=== PATIENT | female | born 1980 | race Caucasian/White ===

== ENCOUNTER 2016-07-04 07:57 | Emergency (ER) | payer OTHER, SELFPAY ==
--- NOTE | 2016-07-04 08:24 | EDDOCDS ---
Nurse's Notes [facility] Name: Yanely Benson Age: 36 yrs Sex: Female : 1980 Arrival Date: 07/04/2016 Time: 07:57 Bed Triage 1 Private MD: Siddhartha Perea Diagnosis: Cellulitis and abscess of mouth;Dental caries Presentation: 07/04 08:02 Presenting complaint: Patient states: Right sided dental pain with swelling, seen at [facility] urgent care yesterday, diagnosed with dental infection and put on PO Clindamycin, symptoms much worse this AM. Adult Sepsis Screening: The patient does not have new or worsening altered mentation. Patient's respiratory rate is less than 22. Systolic blood pressure is greater than 100. Patient has a qSOFA score of 0- Negative Sepsis Screen. Suicide/Homicide risk assessment- the patient denies having any suicidal and/or homicidal ideations and does not present with any other emotional, behavioral or mental health complaints. Status: Patient is not a emergency medical services coordinator or dependent. Transition of care: patient was not received from another setting of care. 08:02 Acuity: JOSE MANUEL Level 4 [facility] 08:02 Method Of Arrival: Walkin/Carried/Asstd [facility] Triage Assessment: 08:08 General: Appears in no apparent distress, uncomfortable. Pain: Pain currently is 10 out dwg of 10 on a pain scale. HIV screening NA for this visit Offered previously. 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 clindamycin HCl 150 mg Oral cap 1 cap every 6 hours (Last dose: 07/04/2016 05:00) 2. Tylenol 325 mg Oral tab 2 tabs every 4-6 hours as needed (Last dose: 07/04/2016 05:00) 3. fluoxetine 20 mg Oral cap 1 cap once daily (Last dose: 07/02/2016) - PMHx: Alcoholism; Depression; - PSHx: Hysterectomy; - Social history: Smoking status: Patient uses tobacco products, current every day smoker. No barriers to communication noted, The patient speaks fluent Tongan. - Family history: Not pertinent. - : The pt / caregiver states he / she is not on anticoagulants. Home medication list is obtained from the patient. - Exposure Risk Screening:: None identified. Screenin:19 Screening information is obtained from the patient. Fall risk: No risks identified. srm Assistance ADL's: requires no assistance with activities of daily living. Abuse/DV Screen: The patient / caregiver reports he/she is: not in a situation that causes fear, pain or injury. 08:22 Nutritional screening: No deficits noted. Advance Directives: There is no active DNR srm order. home support is adequate. Assessment: 08:19 General: Appears uncomfortable, Behavior is appropriate for age, cooperative. srm Neurological: No deficits noted. EENT: Reports right tooth pain and facial swelling. Respiratory: No deficits noted. Vital Signs: 08:08 BP 118 / 79; Pulse 80; Resp 20; Temp 97.9(T); Pulse Ox 97% on R/A; Weight 72.57 kg; g Height 5 ft. 3 in. (160.02 cm); Pain 10/10; 08:08 Body Mass Index 28.34 (72.57 kg, 160.02 cm) [facility] Vitals: 08:08 Log In Time: July 04, 2016 at 08:00. [facility] ED Course: 07:58 Patient visited by Cecy Owen Reg. lg 07:58 Siddhartha Perea is Private Physician. lg 07:58 Patient moved to Waiting lg 08:06 Triage Initiated dwg 08:07 [facility] Manley [facility]. btw 08:07 Diana Woodward MD is Attending Physician. btw 08:09 Patient moved to Triage 1 dwg 08:11 Patient visited by Rodolfo Manley PA. btw 08:13 Amauri Castro is Referral Physician. btw 08:21 [facility] Payment Agreement was scanned into [employer] and attached to record. jp5 08:22 The patient / caregiver is instructed regarding the plan of care and ED course. Patient srm has correct armband on for positive identification. 08:22 No IV's were initiated during this patient's visit. No procedures done that require srm assistance. Order Results: There are currently no results for this order. Outcome: 08:13 Discharge ordered by Provider. btw 08:22 Discharge Assessment: Patient awake, alert and oriented x 3. No cognitive and/or srm functional deficits noted. Patient verbalized understanding of disposition instructions. patient administered narcotics - no. The following High Risk Discharge criteria are identified: None. Discharged to home ambulatory. Condition: good Condition: stable. Discharge instructions given to patient, Instructed on discharge instructions, follow up and referral plans. medication usage, Demonstrated understanding of instructions, medications, Pt was receptive of discharge instructions/ teaching. Prescriptions given X 2. No special radiology studies were completed. Property :Personal belongings accompany Pt. 08:22 Patient left the ED. srm Signatures: Arslan Barbosa RN RN dwg Michelson, Staci, RN RN Cecy Cisse, Heri Reg Rodolfo Lyons PA PA btw Price, Jennalee jp5 MTDD
--- NOTE | 2016-07-04 08:24 | EDDOCDS ---
Physician Documentation [facility] Name: Yanely Benson Age: 36 yrs Sex: Female : 1980 Arrival Date: 07/04/2016 Time: 07:57 Bed Triage 1 Private MD: Siddhartha Perea Disposition: 07/04/16 08:13 Discharged to Home/Self Care. Impression: Cellulitis and abscess of mouth, Dental caries. - Condition is Stable. - Discharge Instructions: Dental Abscess, Dental Pain. - Prescriptions for Ultram 50 mg Oral Tablet - take 1 tablet by ORAL route every 6 hours As needed MDD: 4 tabs; 20 tablet. etodolac 200 mg Oral Capsule - take 1 capsule by ORAL route 3 times per day; 30 capsule. - Medication Reconciliation, Local Pharmacy Hours form. - Follow up: Your, Dentist; When: 1 - 2 days; Reason: Further diagnostic work-up, Recheck today's complaints, Continuance of care. - Problem is new. - Symptoms are unchanged. Historical: - Allergies: PENICILLINS; - Home Meds: 1. clindamycin HCl 150 mg Oral cap 1 cap every 6 hours (Last dose: 07/04/2016 05:00) 2. Tylenol 325 mg Oral tab 2 tabs every 4-6 hours as needed (Last dose: 07/04/2016 05:00) 3. fluoxetine 20 mg Oral cap 1 cap once daily (Last dose: 07/02/2016) - PMHx: Alcoholism; Depression; - PSHx: Hysterectomy; - Social history: Smoking status: Patient uses tobacco products, current every day smoker. No barriers to communication noted, The patient speaks fluent Turkmen. - Family history: Not pertinent. - : The pt / caregiver states he / she is not on anticoagulants. Home medication list is obtained from the patient. - Exposure Risk Screening:: None identified. 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 3 in. (160.02 cm); Pain 10/10; 08:08 Body Mass Index 28.34 (72.57 kg, 160.02 cm) dwg MDM: 08:21 [facility] Payment Agreement was scanned into [employer] and attached to record. jp5 08:21 Financial registration complete. jp5 Signatures: Arslan Barbosa RN RN dwg Michelson, Staci, RN RN srm Wolfenden, Brandon, PA PA btw Price, Jennalee jp5 The chart was reviewed and I authenticate all verbal orders and agree with the evaluation and treatment provided.Attachments: 08:21 [facility] Payment Agreement jp5 MTDD
--- NOTE | 2016-07-06 09:24 | EDDOCDS ---
Nurse's Notes [facility] Name: Yanely Benson Age: 36 yrs Sex: Female : 1980 Arrival Date: 07/04/2016 Time: 07:57 Bed Triage 1 Private MD: Siddhartha Perea Diagnosis: Cellulitis and abscess of mouth;Dental caries Presentation: 07/04 08:02 Presenting complaint: Patient states: Right sided dental pain with swelling, seen at [facility] urgent care yesterday, diagnosed with dental infection and put on PO Clindamycin, symptoms much worse this AM. Adult Sepsis Screening: The patient does not have new or worsening altered mentation. Patient's respiratory rate is less than 22. Systolic blood pressure is greater than 100. Patient has a qSOFA score of 0- Negative Sepsis Screen. Suicide/Homicide risk assessment- the patient denies having any suicidal and/or homicidal ideations and does not present with any other emotional, behavioral or mental health complaints. Status: Patient is not a litigation services manager or dependent. Transition of care: patient was not received from another setting of care. 08:02 Acuity: JOSE MANUEL Level 4 [facility] 08:02 Method Of Arrival: Walkin/Carried/Asstd [facility] Triage Assessment: 08:08 General: Appears in no apparent distress, uncomfortable. Pain: Pain currently is 10 out dwg of 10 on a pain scale. HIV screening NA for this visit Offered previously. 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 clindamycin HCl 150 mg Oral cap 1 cap every 6 hours (Last dose: 07/04/2016 05:00) 2. Tylenol 325 mg Oral tab 2 tabs every 4-6 hours as needed (Last dose: 07/04/2016 05:00) 3. fluoxetine 20 mg Oral cap 1 cap once daily (Last dose: 07/02/2016) - PMHx: Alcoholism; Depression; - PSHx: Hysterectomy; - Social history: Smoking status: Patient uses tobacco products, current every day smoker. No barriers to communication noted, The patient speaks fluent Surinamese. - Family history: Not pertinent. - : The pt / caregiver states he / she is not on anticoagulants. Home medication list is obtained from the patient. - Exposure Risk Screening:: None identified. Screenin:19 Screening information is obtained from the patient. Fall risk: No risks identified. srm Assistance ADL's: requires no assistance with activities of daily living. Abuse/DV Screen: The patient / caregiver reports he/she is: not in a situation that causes fear, pain or injury. 08:22 Nutritional screening: No deficits noted. Advance Directives: There is no active DNR srm order. home support is adequate. Assessment: 08:19 General: Appears uncomfortable, Behavior is appropriate for age, cooperative. srm Neurological: No deficits noted. EENT: Reports right tooth pain and facial swelling. Respiratory: No deficits noted. Vital Signs: 08:08 BP 118 / 79; Pulse 80; Resp 20; Temp 97.9(T); Pulse Ox 97% on R/A; Weight 72.57 kg; g Height 5 ft. 3 in. (160.02 cm); Pain 10/10; 08:08 Body Mass Index 28.34 (72.57 kg, 160.02 cm) [facility] Vitals: 08:08 Log In Time: July 04, 2016 at 08:00. [facility] ED Course: 07:58 Patient visited by Cecy Owen Reg. lg 07:58 Siddhartha Perea is Private Physician. lg 07:58 Patient moved to Waiting lg 08:06 Triage Initiated dwg 08:07 [facility]. btw 08:07 Diana Woodward MD is Attending Physician. btw 08:09 Patient moved to Triage 1 dwg 08:11 Patient visited by Rodolfo Manley PA. btw 08:13 [facility] is Referral Physician. btw 08:21 [facility] Payment Agreement was scanned into [employer] and attached to record. jp5 08:22 The patient / caregiver is instructed regarding the plan of care and ED course. Patient srm has correct armband on for positive identification. 08:22 No IV's were initiated during this patient's visit. No procedures done that require srm assistance. 14:30 T-Sheet-- Draft Copy was scanned into [employer] and attached to record. gb Order Results: There are currently no results for this order. Outcome: 08:13 Discharge ordered by Provider. btw 08:22 Discharge Assessment: Patient awake, alert and oriented x 3. No cognitive and/or srm functional deficits noted. Patient verbalized understanding of disposition instructions. patient administered narcotics - no. The following High Risk Discharge criteria are identified: None. Discharged to home ambulatory. Condition: good Condition: stable. Discharge instructions given to patient, Instructed on discharge instructions, follow up and referral plans. medication usage, Demonstrated understanding of instructions, medications, Pt was receptive of discharge instructions/ teaching. Prescriptions given X 2. No special radiology studies were completed. Property :Personal belongings accompany Pt. 08:22 Patient left the ED. srm Signatures: Arslan Barbosa, RN RN Sarah Emerson RN RN srm Sabina Wadsworth, Reg Reg gb Cecy Owen, Reg Reg lg Rodolfo Manley PA PA btw Price, Jennalee jp5 Chart Complete MTDBecky
--- NOTE | 2016-07-06 09:24 | EDDOCDS ---
Physician Documentation [facility] Name: Ynaely Benson Age: 36 yrs Sex: Female : 1980 Arrival Date: 07/04/2016 Time: 07:57 Bed Triage 1 Private MD: Siddhartha Perea Disposition: 07/04/16 08:13 Discharged to Home/Self Care. Impression: Cellulitis and abscess of mouth, Dental caries. - Condition is Stable. - Discharge Instructions: Dental Abscess, Dental Pain. - Prescriptions for Ultram 50 mg Oral Tablet - take 1 tablet by ORAL route every 6 hours As needed MDD: 4 tabs; 20 tablet. etodolac 200 mg Oral Capsule - take 1 capsule by ORAL route 3 times per day; 30 capsule. - Medication Reconciliation, Local Pharmacy Hours form. - Follow up: Your, Dentist; When: 1 - 2 days; Reason: Further diagnostic work-up, Recheck today's complaints, Continuance of care. - Problem is new. - Symptoms are unchanged. Historical: - Allergies: PENICILLINS; - Home Meds: 1. clindamycin HCl 150 mg Oral cap 1 cap every 6 hours (Last dose: 07/04/2016 05:00) 2. Tylenol 325 mg Oral tab 2 tabs every 4-6 hours as needed (Last dose: 07/04/2016 05:00) 3. fluoxetine 20 mg Oral cap 1 cap once daily (Last dose: 07/02/2016) - PMHx: Alcoholism; Depression; - PSHx: Hysterectomy; - Social history: Smoking status: Patient uses tobacco products, current every day smoker. No barriers to communication noted, The patient speaks fluent Nepali. - Family history: Not pertinent. - : The pt / caregiver states he / she is not on anticoagulants. Home medication list is obtained from the patient. - Exposure Risk Screening:: None identified. 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 3 in. (160.02 cm); Pain 10/10; 08:08 Body Mass Index 28.34 (72.57 kg, 160.02 cm) dwg MDM: : [facility] Payment Agreement was scanned into [employer] and attached to record. jp5 : Financial registration complete. jp5 14:30 T-Sheet-- Draft Copy was scanned into [employer] and attached to record. gb Signatures: Arslan Barbosa RN RN dwg Michelson, Staci, RN RN [facility] Sabina Wadsworth, Reg Reg gb Rodolfo Manley PA PA btw Shun Issa jp5 The chart was reviewed and I authenticate all verbal orders and agree with the evaluation and treatment provided.Attachments: : [facility] Payment Agreement jp5 14:30 T-Sheet-- Draft Copy gb Chart Complete MTDD
--- NOTE | 2016-07-06 09:24 | EDDOCDS ---
Physician Documentation [facility] Name: Yanely Benson Age: 36 yrs Sex: Female : 1980 Arrival Date: 07/04/2016 Time: 07:57 Bed Triage 1 Private MD: Siddhartha Perea Disposition: 07/04/16 08:13 Discharged to Home/Self Care. Impression: Cellulitis and abscess of mouth, Dental caries. - Condition is Stable. - Discharge Instructions: Dental Abscess, Dental Pain. - Prescriptions for Ultram 50 mg Oral Tablet - take 1 tablet by ORAL route every 6 hours As needed MDD: 4 tabs; 20 tablet. etodolac 200 mg Oral Capsule - take 1 capsule by ORAL route 3 times per day; 30 capsule. - Medication Reconciliation, Local Pharmacy Hours form. - Follow up: Your, Dentist; When: 1 - 2 days; Reason: Further diagnostic work-up, Recheck today's complaints, Continuance of care. - Problem is new. - Symptoms are unchanged. Historical: - Allergies: PENICILLINS; - Home Meds: 1. clindamycin HCl 150 mg Oral cap 1 cap every 6 hours (Last dose: 07/04/2016 05:00) 2. Tylenol 325 mg Oral tab 2 tabs every 4-6 hours as needed (Last dose: 07/04/2016 05:00) 3. fluoxetine 20 mg Oral cap 1 cap once daily (Last dose: 07/02/2016) - PMHx: Alcoholism; Depression; - PSHx: Hysterectomy; - Social history: Smoking status: Patient uses tobacco products, current every day smoker. No barriers to communication noted, The patient speaks fluent Bulgarian. - Family history: Not pertinent. - : The pt / caregiver states he / she is not on anticoagulants. Home medication list is obtained from the patient. - Exposure Risk Screening:: None identified. 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 3 in. (160.02 cm); Pain 10/10; 08:08 Body Mass Index 28.34 (72.57 kg, 160.02 cm) dwg MDM: : [facility] Payment Agreement was scanned into [employer] and attached to record. jp5 : Financial registration complete. jp5 14:30 T-Sheet-- Draft Copy was scanned into [employer] and attached to record. gb Signatures: Arslan Barbosa RN RN dwg Michelson, Staci, RN RN [facility] Sabina Wadsworth, Reg Reg gb Rodolfo Manley PA PA btw Shun Issa jp5 The chart was reviewed and I authenticate all verbal orders and agree with the evaluation and treatment provided.Attachments: : [facility] Payment Agreement jp5 14:30 T-Sheet-- Draft Copy gb Chart Complete MTDD
== END 2016-07-04 08:22 | disposition home or self-care (01) ==
LOC: M ED 07:57
DX: K04.7 Periapical abscess without sinus (principal); K02.9 Dental caries, unspecified; F32.9 Major depressive disorder, single episode, unspecified; F17.210 Nicotine dependence, cigarettes, uncomplicated; Z88.0 Allergy status to penicillin

== ENCOUNTER 2016-10-17 18:57 | Emergency (ER) | payer OTHER, MEDICAID ==
[~2016-10-17] VITALS: Ht 162.6 cm; Wt 68.0 kg
[2016-10-17] MEDS ORDERED: MULTIVITAMIN -ADULT INJECTION 10 ML, THIAMINE INJection 100 MG, FOLIC ACID 1 MG in NS 1... IV ONE (21:45)
[2016-10-17 22:11] LABS: BASO % 0.5 % (0.0-1.0); EOS # 0.1 K/mm3 (0.0-0.50); LARGE UNSTAINED CELL # 0.1 K/mm3 (0.0-0.4); LARGE UNSTAINED CELL % 1.4 % (0.0-4.0); LYMPH # 1.9 K/mm3 (1.5-4.5); LYMPH % 24.8 % (24.0-44.0); MEAN CORPUSCULAR HEMOGLOBIN 33.9 pg (27.0-33.0); MEAN CORPUSCULAR HGB CONC 35.9 g/dl (32.0-36.5); MEAN CORPUSCULAR VOLUME 94.5 fl (80.0-96.0); MONO # 0.3 K/mm3 (0.0-0.8); MONO % 4.2 % (0.0-5.0); NEUTROPHILS # 5.1 K/mm3 (1.8-7.7); NEUTROPHILS % 68.1 % (36.0-66.0); PLATELET COUNT, AUTOMATED 107 k/mm3 (150-450); RED CELL DISTRIBUTION WIDTH 12.4 % (11.5-14.5); WHITE BLOOD COUNT 7.5 K/mm3 (4.0-10.0)
[2016-10-17 22:36] LABS: ALBUMIN 3.8 GM/DL (3.2-5.2); ALBUMIN/GLOBULIN RATIO 1.03 (1.00-1.93); ALKALINE PHOSPHATASE 148 U/L (45-117); ALT/SGPT 72 U/L (12-78); AMYLASE 127 U/L (25-115); ANION GAP 14 MEQ/L (8-16); AST/SGOT 110 U/L (15-37); BILIRUBIN,DIRECT 0.8 MG/DL (0.0-0.2); BILIRUBIN,TOTAL 2.2 MG/DL (0.2-1.0); BLOOD UREA NITROGEN 12 MG/DL (7-18); CALCIUM LEVEL 8.7 MG/DL (8.5-10.1); CARBON DIOXIDE LEVEL 26 MEQ/L (21-32); CHLORIDE LEVEL 95 MEQ/L (98-107); CREATININE FOR GFR 0.84 MG/DL (0.55-1.02); GLOMERULAR FILTRATION RATE > 60.0 (>60); GLUCOSE, FASTING 88 MG/DL (70-105); POTASSIUM SERUM 3.2 MEQ/L (3.5-5.1); SODIUM LEVEL 135 MEQ/L (136-145); TOTAL PROTEIN 7.5 GM/DL (6.4-8.2)
[2016-10-17] MEDS ORDERED: BACTRIM 160MG/800MG DS TAB PO ONE (23:00)
[2016-10-17] MEDS ORDERED: ISOVUE-370 76% 100ML VIAL (Q9967) As Ordered ONE (23:06)
--- NOTE | 2016-10-17 23:30 | REPUSA ---
CT of the abdomen and pelvis with contrast Clinical statement: Pain. Pancreatitis. Technique: Multiple axial CT images were obtained from the base of the lungs through the floor of the pelvis utilizing 5 mm axial slices after administration of nonionic intravenous contrast. Coronal an d sagittal reconstructions were also obtained. Comparison: None. Findings: Chest: The visualized lung bases are clear, other than a 4 mm nodule in the posterior left lung base. Abdomen: The spleen, pancreas, kidneys, gallbladder, and adrenal glands are unremarkable. The liver i s enlarged, measuring 24.2 cm in maximal diameter. Diffuse low attenuation of the hepatic parenchyma is noted. No hepatic masses are seen. The aorta is within normal limits. There is no evidence of abdo sridhar lymphadenopathy or ascites. Pelvis: The bowel is unremarkable, with no obstructive or inflammatory changes. The appendix is jhonathan l. The urinary bladder is within normal limits. IUD is in place within the uterus. The other pelvic s tructures appear grossly intact. There is no evidence of pelvic lymphadenopathy or ascites. Bones: There are no suspicious osseous abnormalities seen. Impression: 1. No focal acute abnormality appreciated. The pancreas is unremarkable. 2. Hepatomegaly with diffuse fatty infiltration of the liver. 3. 4 mm nodule in the posterior left lung base, which is not considered clinically significant by Fle ischner society protocol recommendations.
[2016-10-18] MEDS ORDERED: BACT800T5 PO (00:05)
[2016-10-18 00:17] VITALS: BP 158/106
--- NOTE | 2016-10-18 14:08 | ED PDOC ---
Post-Departure Follow-Up dr bianca wan faxed formal report of ct abd/p for fu Mavis Barone MD October 18, 2016 14:08
== END 2016-10-18 00:25 | disposition home or self-care (01) ==
LOC: M ED 20:04
DX: K85.90 Acute pancreatitis without necrosis or infection, unspecified (principal); N39.0 Urinary tract infection, site not specified; R91.1 Solitary pulmonary nodule; K76.0 Fatty (change of) liver, not elsewhere classified; R16.0 Hepatomegaly, not elsewhere classified; F32.9 Major depressive disorder, single episode, unspecified; F17.200 Nicotine dependence, unspecified, uncomplicated; F10.21 Alcohol dependence, in remission; Z90.79 Acquired absence of other genital organ(s); Z88.0 Allergy status to penicillin
CPT/HCPCS: 36415; 74177; 80048; 80076; 81001; 82150; 83690; 85025; 87088; 87186; 96365; 96366; 99282; G0480; J3411; Q9967

== ENCOUNTER 2016-12-11 16:16 | Emergency (ER) | payer OTHER, MEDICAID ==
[~2016-12-11] VITALS: Ht 162.6 cm; Wt 83.1 kg
[~2016-12-11 16:16] MED LIST: BACT800T5 PO
[2016-12-11 16:19] VITALS: BP 141/98
[2016-12-11] MEDS ORDERED: FLUO20CA8 PO (16:34)
[2016-12-11] MEDS ORDERED: NORCOTAB PO (16:52)
[2016-12-11] MEDS ORDERED: CLEO300C2 PO (16:52)
== END 2016-12-11 17:07 | disposition home or self-care (01) ==
LOC: M ED 16:16
DX: K08.89 Other specified disorders of teeth and supporting structures (principal); K05.10 Chronic gingivitis, plaque induced; F10.10 Alcohol abuse, uncomplicated; Z79.899 Other long term (current) drug therapy; Z88.0 Allergy status to penicillin

== ENCOUNTER 2017-01-09 02:24 | Emergency (ER) | payer MEDICAID, OTHER ==
[~2017-01-09 02:24] MED LIST changes: +CLEO300C2 PO; +FLUO20CA8 PO; +NORCOTAB PO
[2017-01-09 02:44] VITALS: BP 126/65
[2017-01-09] MEDS ORDERED: diphenhydrAMINE INJ 50MG/ML VIAL (J1200) IV STA (04:02)
[2017-01-09] MEDS ORDERED: HALOPERIDOL 5 MG/ML VIAL (J1630) IV STA (04:02)
[2017-01-09] MEDS ORDERED: NS 1,000 ML IV ONE (04:15)
[2017-01-09 04:21] LABS: ALBUMIN 4.4 GM/DL (3.2-5.2); ALBUMIN/GLOBULIN RATIO 1.47 (1.00-1.93); ALKALINE PHOSPHATASE 119 U/L (45-117); ALT/SGPT 32 U/L (12-78); AMYLASE 78 U/L (25-115); ANION GAP 14 MEQ/L (8-16); AST/SGOT 36 U/L (15-37); BILIRUBIN,DIRECT 0.3 MG/DL (0.0-0.2); BILIRUBIN,TOTAL 0.8 MG/DL (0.2-1.0); BLOOD UREA NITROGEN 14 MG/DL (7-18); CALCIUM LEVEL 9.4 MG/DL (8.5-10.1); CARBON DIOXIDE LEVEL 22 MEQ/L (21-32); CHLORIDE LEVEL 103 MEQ/L (98-107); CREATININE FOR GFR 0.94 MG/DL (0.55-1.02); GLOMERULAR FILTRATION RATE > 60.0 (>60); GLUCOSE, FASTING 74 MG/DL (70-105); POTASSIUM SERUM 3.1 MEQ/L (3.5-5.1); SODIUM LEVEL 139 MEQ/L (136-145); TOTAL PROTEIN 7.4 GM/DL (6.4-8.2)
[2017-01-09 04:27] LABS: BASO % 0.3 % (0.0-1.0); EOS # 0.1 K/mm3 (0.0-0.50); EOS % 0.8 % (0.0-3.0); LARGE UNSTAINED CELL # 0.2 K/mm3 (0.0-0.4); LARGE UNSTAINED CELL % 1.2 % (0.0-4.0); LYMPH # 3.5 K/mm3 (1.5-4.5); LYMPH % 23.3 % (24.0-44.0); MEAN CORPUSCULAR HEMOGLOBIN 33.9 pg (27.0-33.0); MEAN CORPUSCULAR HGB CONC 34.8 g/dl (32.0-36.5); MEAN CORPUSCULAR VOLUME 97.2 fl (80.0-96.0); MONO # 0.5 K/mm3 (0.0-0.8); MONO % 3.4 % (0.0-5.0); NEUTROPHILS # 10.1 K/mm3 (1.8-7.7); PLATELET COUNT, AUTOMATED 203 k/mm3 (150-450); RED CELL DISTRIBUTION WIDTH 12.2 % (11.5-14.5); WHITE BLOOD COUNT 14.2 K/mm3 (4.0-10.0)
== END 2017-01-09 05:17 | disposition left against medical advice (07) ==
LOC: M ED 02:24
DX: R11.10 Vomiting, unspecified (principal); F32.9 Major depressive disorder, single episode, unspecified; F17.200 Nicotine dependence, unspecified, uncomplicated; F10.21 Alcohol dependence, in remission; Z90.79 Acquired absence of other genital organ(s)
CPT/HCPCS: 80048; 80076; 82150; 83690; 85025; 96374; 96375; 99281; J1200; J1630

== ENCOUNTER → 2017-04-03 | Outpatient (CLI) | payer MEDICAID | LOC: M OUTALCOH 08:20 | PROVIDERS: ATTEND Psychiatry & Neurology Psychiatry | DX: F12.20 Cannabis dependence, uncomplicated (principal); F10.20 Alcohol dependence, uncomplicated ==

== ENCOUNTER 2017-05-09 11:05 | Outpatient (RCR) | payer MEDICAID | END 2017-06-08 | LOC: M OUTALCOH 05-15 14:00 | DX: F10.20 Alcohol dependence, uncomplicated (principal); F12.20 Cannabis dependence, uncomplicated ==

== ENCOUNTER 2017-12-07 18:04 | Emergency (ER) | payer OTHER, MEDICAID ==
[2017-12-07] MEDS: KETOROLAC TROMETHAMINE 10 MG TAB PO (20:05)
[2017-12-07] MEDS: BACLOFEN 10 MG TAB PO (20:05)
== END 2017-12-07 20:57 | disposition home or self-care (01) ==
LOC: M ED 18:04
DX: M54.42 Lumbago with sciatica, left side (principal); F10.10 Alcohol abuse, uncomplicated; F41.9 Anxiety disorder, unspecified; R56.9 Unspecified convulsions; Z88.0 Allergy status to penicillin; Z79.899 Other long term (current) drug therapy
CPT/HCPCS: 73564

== ENCOUNTER 2018-03-31 07:28 | Emergency (ER) | payer OTHER ==
[2018-03-31] MEDS: NS 1,000 ML IV (07:45)
[2018-03-31] MEDS: ONDANSETRON 4MG/2ML VIAL (J2405) IV (08:04)
[2018-03-31 08:13] LABS: BASO % 0.6 % (0.0-1.0); EOS # 0.1 10^3/uL (0.0-0.50); EOS % 0.7 % (0.0-3.0); HEMATOCRIT 46.4 % (36.0-47.0); HEMOGLOBIN 16.2 g/dl (12.0-15.5); IMMATURE GRANULOCYTE % 0.3 % (0-3.0); LYMPH # 2.2 10^3/uL (1.5-4.5); LYMPH % 30.8 % (24.0-44.0); MEAN CORPUSCULAR HEMOGLOBIN 31.6 pg (27.0-33.0); MEAN CORPUSCULAR HGB CONC 34.9 g/dl (32.0-36.5); MEAN CORPUSCULAR VOLUME 90.6 fl (80.0-96.0); MONO # 0.4 10^3/uL (0.0-0.8); MONO % 6.1 % (0.0-5.0); NEUTROPHILS # 4.4 10^3/uL (1.8-7.7); NEUTROPHILS % 61.5 % (36.0-66.0); PLATELET COUNT, AUTOMATED 267 10^3/uL (150-450); RED BLOOD COUNT 5.12 10^6/uL (4.00-5.40); RED CELL DISTRIBUTION WIDTH 11.9 % (11.5-14.5); WHITE BLOOD COUNT 7.2 10^3/uL (4.0-10.0)
[2018-03-31 08:50] LABS: HCG, SERUM QUANTITATIVE < 1.0 MIU/ML
[2018-03-31 08:54] LABS: ALBUMIN 3.6 GM/DL (3.2-5.2); ALKALINE PHOSPHATASE 120 U/L (45-117); ALT/SGPT 157 U/L (12-78); ANION GAP 10 MEQ/L (8-16); AST/SGOT 114 U/L (7-37); BILIRUBIN,TOTAL 0.4 MG/DL (0.2-1.0); BLOOD UREA NITROGEN 15 MG/DL (7-18); CALCIUM LEVEL 8.5 MG/DL (8.5-10.1); CARBON DIOXIDE LEVEL 23 MEQ/L (21-32); CHLORIDE LEVEL 109 MEQ/L (98-107); CK-MB VALUE MASS < 1.0 NG/ML (<3.6); CPK CREATINE PHOSPHOKINASE 141 U/L (26-192); CREATININE FOR GFR 0.84 MG/DL (0.55-1.30); ETHYL ALCOHOL (ETHANOL) 0.102 % (0.000-0.010); GLOMERULAR FILTRATION RATE > 60.0 (>60); GLUCOSE, FASTING 98 MG/DL (70-100); MB/CK RELATIVE INDEX 0.71 (< OR =4); SODIUM LEVEL 142 MEQ/L (136-145); TOTAL PROTEIN 7.2 GM/DL (6.4-8.2); TROPONIN I < 0.02 NG/ML (< 0.10)
[2018-03-31 09:31] LABS: AMYLASE 55 U/L (25-115)
[2018-03-31 09:31] LABS: LIPASE 85 U/L (73-393)
[2018-03-31 09:40] LABS: APPEARANCE, URINE HAZY (CLEAR); BACTERIA, URINE AUTO NEGATIVE (NEGATIVE); BILIRUBIN, URINE AUTO NEGATIVE (NEGATIVE); BLOOD, URINE BLOOD 2+ (NEGATIVE); COLOR, URINE YELLOW (YELLOW); GLUCOSE, URINE (UA) AUTO NEGATIVE (NEGATIVE); KETONE, URINE AUTO NEGATIVE (NEGATIVE); LEUKOCYTE ESTERASE, URINE AUTO NEGATIVE (NEGATIVE); MUCUS, URINE SMALL (NEGATIVE); NITRITE, URINE AUTO NEGATIVE (NEGATIVE); PROTEIN, URINE AUTO NEGATIVE (NEGATIVE); RBC, URINE AUTO 0 /HPF (0-3); SPECIFIC GRAVITY URINE AUTO 1.015 (1.002-1.035); SQUAMOUS EPITHELIAL CELL UR AU 9 /HPF (0-6); UROBILINOGEN, URINE AUTO 0.2 mg/dL (0.0-2.0); WBC, URINE AUTO 0 /HPF (0-3)
[2018-03-31 09:52] LABS: AMPHETAMINES LEVEL URINE NEGATIVE (NEGATIVE); BARBITURATES URINE NEGATIVE (NEGATIVE); BENZODIAZEPINES URINE NEGATIVE (NEGATIVE); CANNABINOIDS URINE NEGATIVE (NEGATIVE); COCAINE METABOLITE URINE NEGATIVE (NEGATIVE); METHADONE URINE NEGATIVE (NEGATIVE); OPIATES URINE NEGATIVE (NEGATIVE); PHENCYCLIDINE URINE NEGATIVE (NEGATIVE)
== END 2018-03-31 10:11 | disposition home or self-care (01) ==
LOC: M ED 07:28
DX: R10.13 Epigastric pain (principal); R11.2 Nausea with vomiting, unspecified; R94.5 Abnormal results of liver function studies; K76.0 Fatty (change of) liver, not elsewhere classified; F33.9 Major depressive disorder, recurrent, unspecified; F41.9 Anxiety disorder, unspecified; G40.89 Other seizures; F10.188 Alcohol abuse with other alcohol-induced disorder; Y90.0 Blood alcohol level of less than 20 mg/100 ml; Z88.0 Allergy status to penicillin
CPT/HCPCS: J2405

== ENCOUNTER 2018-09-11 22:17 | Emergency (ER) | payer OTHER ==
[~2018-09-11] VITALS: Ht 172.7 cm; Wt 94.5 kg
[~2018-09-11 22:17] MED LIST changes: +BACL10TA2 PO; +DICL75TA PO; +HYDR-3715 PO; -NORCOTAB PO; +WELLTAB38 PO; +ZOFR4TAB14 PO
[2018-09-11] MEDS ORDERED: ONDANSETRON 4MG/2ML VIAL (J2405) IV ONE (22:30)
[2018-09-11] MEDS ORDERED: NS 1,000 ML IV ONE (22:30)
[2018-09-11] MEDS ORDERED: LIDOCAINE 2% 5ML JELLY UROJET TOP ONE (22:30)
[2018-09-11 22:40] LABS: BASO # 0.1 10^3/uL (0.0-0.2); BASO % 0.5 % (0.0-1.0); EOS # 0.2 10^3/uL (0.0-0.50); EOS % 1.6 % (0.0-3.0); HEMATOCRIT 45.7 % (36.0-47.0); HEMOGLOBIN 15.5 g/dl (12.0-15.5); LYMPH # 4.3 10^3/uL (1.5-4.5); LYMPH % 42.6 % (24.0-44.0); MEAN CORPUSCULAR HGB CONC 33.9 g/dl (32.0-36.5); MEAN CORPUSCULAR VOLUME 94.4 fl (80.0-96.0); MONO # 0.6 10^3/uL (0.0-0.8); MONO % 5.6 % (0.0-5.0); NEUTROPHILS % 49.4 % (36.0-66.0); PLATELET COUNT, AUTOMATED 216 10^3/uL (150-450); RED BLOOD COUNT 4.84 10^6/uL (4.00-5.40); WHITE BLOOD COUNT 10.1 10^3/uL (4.0-10.0)
--- NOTE | 2018-09-11 22:57 | REP ---
Clinical: Overdose . Comparison: None . Findings: The ventricles, sulci, and cisterns are normal in position and appearance. Beth-white differentiation is maintained. No acute intracranial hemorrhage, mass/mass effect, pathology or trauma/injury. No evidence for acute infarction. No extra-axial fluid collection. Calvarium is intact. Paranasal sinuses and mastoid air cells are clear. Impression: Normal noncontrast head CT. No evidence for acute intracranial pathology or trauma/injury. Electronically Signed by Thony Bedoya MD 09/11/2018 10:48 P
--- NOTE | 2018-09-11 22:57 | REP ---
Clinical: Drug overdose . Technique: Axial noncontrast images from the skull base to the thoracic inlet with coronal and sagittal re-formations Findings: Mild reversal of normal lordosis may be secondary to positioning versus pain/spasm. Normal alignment is maintained. Cervical vertebral bodies including transverse processes and spinous processes are intact and there is no evidence for acute fracture / compression injury or subluxation. Spinal canal is patent. Posterior elements are intact. Paravertebral soft tissues are normal. Impression: Normal noncontrast cervical spine CT. No evidence for acute pathology or trauma/injury. Electronically Signed by Thony Bedoya MD 09/11/2018 10:48 P
[2018-09-11 23:14] LABS: ACETAMINOPHEN LEVEL < 2.0 UG/ML (10.0-30.0); ALBUMIN 3.8 GM/DL (3.2-5.2); ALT/SGPT 23 U/L (12-78); BILIRUBIN,DIRECT < 0.1 MG/DL (0.0-0.2); BILIRUBIN,TOTAL 0.2 MG/DL (0.2-1.0); BLOOD UREA NITROGEN 11 MG/DL (7-18); CALCIUM LEVEL 7.9 MG/DL (8.5-10.1); CARBON DIOXIDE LEVEL 23 MEQ/L (21-32); CHLORIDE LEVEL 109 MEQ/L (98-107); CPK CREATINE PHOSPHOKINASE 251 U/L (26-192); CREATININE FOR GFR 0.81 MG/DL (0.55-1.30); ETHYL ALCOHOL (ETHANOL) 0.363 % (0.000-0.010); GLOMERULAR FILTRATION RATE > 60.0 (>60); GLUCOSE, FASTING 111 MG/DL (70-100); POTASSIUM SERUM 3.8 MEQ/L (3.5-5.1); SALICYLATE LEVEL 3.5 MG/DL (5.0-30.0); SODIUM LEVEL 143 MEQ/L (136-145); TOTAL PROTEIN 6.9 GM/DL (6.4-8.2)
[2018-09-11 23:40] LABS: AMPHETAMINES LEVEL URINE NEGATIVE (NEGATIVE); BARBITURATES URINE NEGATIVE (NEGATIVE); BENZODIAZEPINES URINE NEGATIVE (NEGATIVE); CANNABINOIDS URINE NEGATIVE (NEGATIVE); COCAINE METABOLITE URINE NEGATIVE (NEGATIVE); METHADONE URINE NEGATIVE (NEGATIVE); OPIATES URINE NEGATIVE (NEGATIVE); PHENCYCLIDINE URINE NEGATIVE (NEGATIVE)
[2018-09-12 05:27] VITALS: BP 120/70
--- NOTE | 2018-09-12 07:39 | ECGEPIP ---
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
--- NOTE | 2018-09-12 08:37 | REP ---
Clinical: Drug overdose. Comparison: None . Findings: The mediastinum and cardiac silhouette are stable and within normal limits for portable technique. The lung ulrich are clear without acute consolidation, effusion, or pneumothorax. Skeletal structures are intact. Impression: No acute cardiopulmonary process appreciated. Electronically Signed by Thony Bedoya MD 09/12/2018 08:28 A
== END 2018-09-12 06:06 | disposition home or self-care (01) ==
LOC: EDBD 22:17 → M ED 22:17
DX: F10.129 Alcohol abuse with intoxication, unspecified (principal); I45.89 Other specified conduction disorders; I49.9 Cardiac arrhythmia, unspecified; Z88.0 Allergy status to penicillin
CPT/HCPCS: 51702; 70450; 71045; 72125; 80048; 80076; 80307; 81001; 82550; 84443; 85025; 93005; 93041; 94760; 96360; 96375; 99285; G0480; J2405

== ENCOUNTER → 2019-01-19 | Outpatient (REF) | payer OTHER ==
[2019-01-19 18:03] LABS: BASO # 0.1 10^3/uL (0.0-0.2); BASO % 0.5 % (0.0-1.0); EOS # 0.1 10^3/uL (0.0-0.50); EOS % 1.5 % (0.0-3.0); HEMATOCRIT 44.4 % (36.0-47.0); HEMOGLOBIN 15.3 g/dl (12.0-15.5); LYMPH # 2.6 10^3/uL (1.5-4.5); LYMPH % 27.3 % (24.0-44.0); MEAN CORPUSCULAR HEMOGLOBIN 32.6 pg (27.0-33.0); MEAN CORPUSCULAR HGB CONC 34.5 g/dl (32.0-36.5); MEAN CORPUSCULAR VOLUME 94.5 fl (80.0-96.0); MONO # 0.6 10^3/uL (0.0-0.8); MONO % 6.4 % (0.0-5.0); WHITE BLOOD COUNT 9.4 10^3/uL (4.0-10.0)
[2019-01-19 18:11] LABS: ALBUMIN 3.9 GM/DL (3.2-5.2); ALT/SGPT 25 U/L (12-78); BILIRUBIN,TOTAL 0.3 MG/DL (0.2-1.0); BLOOD UREA NITROGEN 11 MG/DL (7-18); CALCIUM LEVEL 9.1 MG/DL (8.5-10.1); CARBON DIOXIDE LEVEL 25 MEQ/L (21-32); CHLORIDE LEVEL 107 MEQ/L (98-107); CHOLESTEROL LEVEL 160 MG/DL (<200); CHOLESTEROL RISK RATIO 5.333 (<5); CREATININE FOR GFR 0.88 MG/DL (0.55-1.30); FREE T4 1.03 NG/DL (0.76-1.46); GLOMERULAR FILTRATION RATE > 60.0 (>60); GLUCOSE, FASTING 72 MG/DL (70-100); HDL CHOLESTEROL 30 MG/DL (>40); LDL CHOLESTEROL 84 MG/DL (<100); NON-HDL-C 130 MG/DL; POTASSIUM SERUM 4.1 MEQ/L (3.5-5.1); SODIUM LEVEL 140 MEQ/L (136-145); TOTAL PROTEIN 7.1 GM/DL (6.4-8.2); TRIGLYCERIDES LEVEL 231 MG/DL (<150)
[2019-01-19 18:14] LABS: TOTAL 25(OH) VITAMIN D 24.2 NG/ML (30.0-100.0)
[2019-01-19 18:40] LABS: HEMOGLOBIN A1c 5.7 %
== END ==
LOC: M LAB REF 17:10
PROVIDERS: ATTEND Nurse Practitioner Family
DX: Z00.01 Encounter for general adult medical examination with abnormal findings (principal); R74.8 Abnormal levels of other serum enzymes

== ENCOUNTER → 2022-07-04 | Outpatient (REF) | payer OTHER ==
[~2022-07-04] MED LIST changes: +FLUO-96 PO; -FLUO20CA8 PO
[2022-07-04 12:52] LABS: BASO % 0.5 % (0.0-1.0); EOS # 0.1 10^3/uL (0.0-0.5); EOS % 1.6 % (0.0-3.0); HEMATOCRIT 44.6 % (36.0-47.0); HEMOGLOBIN 15.4 g/dl (12.0-15.5); LYMPH # 2.8 10^3/uL (1.5-5.0); LYMPH % 34.3 % (24.0-44.0); MEAN CORPUSCULAR HEMOGLOBIN 32.2 pg (27.0-33.0); MEAN CORPUSCULAR HGB CONC 34.5 g/dl (32.0-36.5); MEAN CORPUSCULAR VOLUME 93.1 fl (80.0-96.0); MONO # 0.5 10^3/uL (0.0-0.8); MONO % 6.3 % (2.0-8.0); NEUTROPHILS # 4.7 10^3/uL (1.5-8.5); NEUTROPHILS % 56.9 % (36.0-66.0); PLATELET COUNT, AUTOMATED 187 10^3/uL (150-450); RED BLOOD COUNT 4.79 10^6/uL (4.00-5.40); WHITE BLOOD COUNT 8.2 10^3/uL (4.0-10.0)
[2022-07-04 13:26] LABS: PERCENT SATURATION 29.6 % (13.2-45.0)
[2022-07-04 13:27] LABS: FERRITIN 46.4 NG/ML (7.3-270.7)
== END ==
LOC: M LAB REF 12:27
PROVIDERS: ATTEND Nurse Practitioner Family
DX: N94.6 Dysmenorrhea, unspecified (principal)

== ENCOUNTER → 2022-08-22 | Outpatient (REF) | payer OTHER ==
[2022-08-22 20:02] LABS: ALBUMIN 3.8 G/DL (3.2-5.2); ALKALINE PHOSPHATASE 91 U/L (46-116); ALT/SGPT 21 U/L (7.0-40); AST/SGOT 20 U/L (<34); BILIRUBIN,TOTAL 0.3 MG/DL (0.3-1.2); BLOOD UREA NITROGEN 11 MG/DL (9-23); CALCIUM LEVEL 9.1 MG/DL (8.5-10.1); CARBON DIOXIDE LEVEL 28 MMOL/L (20-31); CHLORIDE LEVEL 105 MMOL/L (98-107); CHOLESTEROL LEVEL 145 MG/DL (<200); CHOLESTEROL RISK RATIO 3.54 (<5); CREATININE FOR GFR 0.85 MG/DL (0.55-1.30); GLOMERULAR FILTRATION RATE > 60.0 (>58); GLUCOSE, FASTING 71 MG/DL (60-100); HDL CHOLESTEROL 40.9 MG/DL (>40); LDL CHOLESTEROL 77.7 MG/DL (<100); NON-HDL-C 104.1 MG/DL; POTASSIUM SERUM 4.4 MMOL/L (3.5-5.1); SODIUM LEVEL 137 MMOL/L (136-145); THYROID STIMULATING HORMONE 0.996 uIU/ML (0.55-4.78); TOTAL 25(OH) VITAMIN D 27.6 NG/ML (20.0-100.0); TOTAL PROTEIN 6.4 G/DL (5.7-8.2); TRIGLYCERIDES LEVEL 132 MG/DL (<150)
[2022-08-22 20:29] LABS: HIV 1&2 SCREEN CENTAUR NEGATIVE (NEGATIVE)
== END ==
LOC: M LAB REF 16:12
PROVIDERS: ATTEND Nurse Practitioner Family
DX: E78.1 Pure hyperglyceridemia (principal); Z11.9 Encounter for screening for infectious and parasitic diseases, unspecified; E55.9 Vitamin D deficiency, unspecified

== ENCOUNTER → 2023-08-26 | Outpatient (REF) | payer OTHER ==
[2023-08-26 12:35] LABS: BASO # 0.1 10^3/uL (0.0-0.2); BASO % 0.7 % (0.0-1.0); EOS # 0.1 10^3/uL (0.0-0.5); EOS % 1.3 % (0.0-3.0); HEMATOCRIT 47.2 % (36.0-47.0); HEMOGLOBIN 16.2 g/dl (12.0-15.5); LYMPH # 2.3 10^3/uL (1.5-5.0); LYMPH % 27.3 % (24.0-44.0); MEAN CORPUSCULAR HEMOGLOBIN 31.3 pg (27.0-33.0); MEAN CORPUSCULAR HGB CONC 34.3 g/dl (32.0-36.5); MEAN CORPUSCULAR VOLUME 91.3 fl (80.0-96.0); MONO # 0.5 10^3/uL (0.0-0.8); NEUTROPHILS # 5.5 10^3/uL (1.5-8.5); NEUTROPHILS % 64.3 % (36.0-66.0); PLATELET COUNT, AUTOMATED 213 10^3/uL (150-450); RED BLOOD COUNT 5.17 10^6/uL (4.00-5.40); WHITE BLOOD COUNT 8.5 10^3/uL (4.0-10.0)
[2023-08-26 12:52] LABS: HEMOGLOBIN A1c 5.2 % (4.0-6.0)
[2023-08-26 12:59] LABS: ALBUMIN 3.9 G/DL (3.2-5.2); ALKALINE PHOSPHATASE 93 U/L (46-116); ALT/SGPT < 9 U/L (7.0-40); AST/SGOT 19 U/L (<34); BILIRUBIN,TOTAL 0.5 MG/DL (0.3-1.2); BLOOD UREA NITROGEN 15 MG/DL (9-23); CALCIUM LEVEL 9.1 MG/DL (8.5-10.1); CARBON DIOXIDE LEVEL 31 MMOL/L (20-31); CHLORIDE LEVEL 106 MMOL/L (98-107); CHOLESTEROL LEVEL 154 MG/DL (<200); CHOLESTEROL RISK RATIO 4.12 (<5); CREATININE FOR GFR 0.88 MG/DL (0.55-1.30); GLOMERULAR FILTRATION RATE > 60.0 (>58); GLUCOSE, FASTING 84 MG/DL (60-100); HDL CHOLESTEROL 37.3 MG/DL (>40); LDL CHOLESTEROL 93.1 MG/DL (<100); NON-HDL-C 116.7 MG/DL; POTASSIUM SERUM 4.6 MMOL/L (3.5-5.1); SODIUM LEVEL 138 MMOL/L (136-145); TOTAL PROTEIN 6.6 G/DL (5.7-8.2); TRIGLYCERIDES LEVEL 118 MG/DL (<150)
[2023-08-26 13:03] LABS: THYROID STIMULATING HORMONE 1.297 uIU/ML (0.55-4.78); TOTAL 25(OH) VITAMIN D 23.3 NG/ML (20.0-100.0)
== END ==
LOC: M LAB REF 11:48
PROVIDERS: ATTEND Physician Assistant
DX: E55.9 Vitamin D deficiency, unspecified (principal); R00.2 Palpitations; E66.3 Overweight

== ENCOUNTER → 2023-10-07 | Outpatient (REF) | payer OTHER | LOC: M LAB REF 17:34 | PROVIDERS: ATTEND Family Medicine Addiction Medicine | DX: Z12.4 Encounter for screening for malignant neoplasm of cervix (principal) ==

== ENCOUNTER → 2023-11-14 | Outpatient (REF) | payer OTHER | LOC: M SFHCWAGY 13:19 | PROVIDERS: ATTEND Specialist | DX: R87.612 Low grade squamous intraepithelial lesion on cytologic smear of cervix (LGSIL) (principal) ==

== ENCOUNTER → 2023-12-15 | Outpatient (CLI) | payer OTHER | LOC: M WHC 08:33 | PROVIDERS: ATTEND Physician Assistant | DX: Z12.31 Encounter for screening mammogram for malignant neoplasm of breast (principal); R92.323 Mammographic fibroglandular density, bilateral breasts ==

== ENCOUNTER 2024-03-26 09:50 | Day surgery (SDC) | payer OTHER ==
[~2024-03-26] VITALS: Ht 162.6 cm; Wt 74.8 kg
[~2024-03-26 09:50] MED LIST changes: +ACETAMINOPHEN 1000MG 100ML IV BAG As Ordered ONE; +LIDOCAINE 2% 100MG/5ML SDV (FOR ANES.) As Ordered ONE; +MIDAZOLAM INJ 2MG/2ML VIAL As Ordered ONE; +ONDANSETRON 4MG 2ML VIAL As Ordered ONE; +ROCURONIUM BROMIDE 50MG/5ML VIAL As Ordered ONE; +dexmedeTOMIDine (4MCG/ML)200MCG/50ML BTL (PRECEDEX) As Ordered ONE; +fentaNYL 100 MCG/2 ML INJECTION As Ordered ONE; +propofoL 200 MG/20 ML VIAL As Ordered ONE
[2024-03-26 10:24] LABS: HEMATOCRIT 45.7 % (36.0-47.0); HEMOGLOBIN 15.8 g/dl (12.0-15.5); MEAN CORPUSCULAR HEMOGLOBIN 32.2 pg (27.0-33.0); MEAN CORPUSCULAR HGB CONC 34.6 g/dl (32.0-36.5); MEAN CORPUSCULAR VOLUME 93.3 fl (80.0-96.0); PLATELET COUNT, AUTOMATED 184 10^3/uL (150-450); WHITE BLOOD COUNT 7.7 10^3/uL (4.0-10.0)
[2024-03-26] MEDS ORDERED: LR 1,000 ML IV SCH ×3 (12:00→17:30)
[2024-03-26] MEDS ORDERED: SCOPOLAMINE 1MG TRANSDERMAL PATCH TOP ONE (12:00)
[2024-03-26] MEDS: ceFAZolin SOD 2 GM in IV 1 EA IV ONE (14:50)
[2024-03-26] MEDS ORDERED: ePHEDrine SULFATE 25 MG/5 ML(5MG/ML) SYRINGE As Ordered ONE (15:11)
[2024-03-26] MEDS ORDERED: HYDROmorphone HCL 2MG/ML 1ML VIAL As Ordered ONE (15:13)
[2024-03-26] MEDS ORDERED: KETOROLAC 60MG 2ML VIAL As Ordered ONE (15:54)
[2024-03-26] MEDS ORDERED: SUGAMMADEX SODIUM 500 MG/5 ML VIAL (BRIDION) As Ordered ONE (15:55)
[2024-03-26] MEDS ORDERED: oxyCODONE 5MG TAB PO PRN (16:10)
[2024-03-26] MEDS ORDERED: fentaNYL 100 MCG/2 ML INJECTION IV PRN (16:10)
[2024-03-26] MEDS ORDERED: ONDANSETRON 4MG 2ML VIAL IV PRN (16:10)
[2024-03-26] MEDS: HYDROMORPHONE HCL 0.5 MG/ 0.5 ML SYRINGE IV PRN (16:28)
[2024-03-26] MEDS: METOCLOPRAMIDE INJ 10MG/2ML VIAL IV PRN (16:28)
[2024-03-26] MEDS ORDERED: IBUP-1022 PO (16:40)
[2024-03-26] MEDS ORDERED: OXYC1TAB23 PO (16:40)
[2024-03-26] MEDS: diphenhydrAMINE 50MG/ML VIAL IV STA (16:50)
[2024-03-26] MEDS ORDERED: PERCOCET 5MG/325MG TAB PO PRN (17:30)
[2024-03-26] MEDS: GLYCOPYRROLATE INJ 0.2 MG/ML 2 ML VIAL IV ONE (17:50)
[2024-03-26] MEDS ORDERED: GLYCOPYRROLATE INJ 0.2 MG/ML 2 ML VIAL As Ordered ONE (17:52)
[2024-03-26 18:51] VITALS: BP 128/64; TEMP 97.2; O2SAT 100
== END 2024-03-26 19:08 | disposition home or self-care (01) ==
LOC: M SDC 09:50
PROVIDERS: ATTEND Specialist
DX: N87.1 Moderate cervical dysplasia (principal); N80.03 Adenomyosis of the uterus; Z98.51 Tubal ligation status; Z88.0 Allergy status to penicillin; F17.210 Nicotine dependence, cigarettes, uncomplicated
CPT/HCPCS: 36415; 58570; 85027; 86850; 86900; 86901; 88307; J0131; J0665; J0690; J1100; J1171; J1200; J1596; J1885; J2250; J2405; J2765; J3010; S2900